=== PATIENT | female | born 2000 | race Caucasian/White ===

== ENCOUNTER 2019-03-19 13:00 | Emergency (ER) | payer OTHER, MEDICAID ==
[~2019-03-19] VITALS: Ht 165.1 cm; Wt 82.7 kg
[2019-03-19] MEDS ORDERED: PRINIVIL5 MG PO (13:04)
[2019-03-19] MEDS ORDERED: PROTONIX 40MG T40 MG PO (13:05)
[2019-03-19] MEDS ORDERED: PAXIL40 MG PO (13:05)
[2019-03-19] MEDS ORDERED: SEROQUEL 1100 MG/TAB PO (13:05)
[2019-03-19 13:06] VITALS: PULSE 109; TEMP 98
[2019-03-19] MEDS ORDERED: SKYLA13.5 MG (13:06)
[2019-03-19 14:21] VITALS: BP 129/95
== END 2019-03-19 14:46 | disposition home or self-care (01) ==
LOC: COL.ER 13:00
DX: S63.261A Dislocation of metacarpophalangeal joint of left index finger, initial encounter (principal); I10 Essential (primary) hypertension; V89.2XXA Person injured in unspecified motor-vehicle accident, traffic, initial encounter